=== PATIENT | male | born 1975 | race Caucasian/White ===

== ENCOUNTER 2018-10-05 20:21 | Emergency (ER) | payer BC ==
--- NOTE | 2018-10-05 20:39 | ED ---
Extremity Problem HPI - General Chief complaint: Extremity Problem,Nontraumatic Stated complaint: poss blood clot in leg Time Seen by Provider: 10/05/18 20:34 Source: patient, RN notes reviewed, old records reviewed Mode of arrival: ambulatory Limitations: no limitations - History of Present Illness Initial comments: This is a 43-year-old male the ER for evaluation presents today for evaluation regards to knee pain right knee pain. Patient concern for DVT. No trauma. No other complaints. No shortness of breath or chest pain. No history of DVT. Significant medical history no fever cough congestion. No recent travel history or sick contacts MD Complaint: extremity pain (Right knee) -: days(s) Location: right History of Same: No -: Yes arthralgia Radiation: none Severity scale (1-10): 3 Quality: aching Consistency: constant Improves with: nothing Worsens with: nothing Associated Symptoms: denies other symptoms - Related Data Home Medications Medication Instructions Recorded Confirmed No Known Home Medications 11/03/13 10/05/18 Allergies Allergy/AdvReac Type Severity Reaction Status Date / Time No Known Allergies Allergy Verified 10/05/18 20:46 Review of Systems ROS Statement: Those systems with pertinent positive or pertinent negative responses have been documented in the HPI. ROS Other: All systems not noted in ROS Statement are negative. Past Medical History Past Medical History: No Reported History History of Any Multi-Drug Resistant Organisms: None Reported Past Surgical History: No Surgical Hx Reported Past Psychological History: No Psychological Hx Reported Smoking Status: Never smoker Past Alcohol Use History: None Reported Past Drug Use History: None Reported General Exam Limitations: no limitations General appearance: alert, in no apparent distress Head exam: Present: atraumatic, normocephalic, normal inspection Eye exam: Present: normal appearance, PERRL, EOMI. Absent: scleral icterus, conjunctival injection, periorbital swelling ENT exam: Present: normal exam, mucous membranes moist Neck exam: Present: normal inspection. Absent: tenderness, meningismus, lymphadenopathy Respiratory exam: Present: normal lung sounds bilaterally. Absent: respiratory distress, wheezes, rales, rhonchi, stridor Cardiovascular Exam: Present: regular rate, normal rhythm, normal heart sounds. Absent: systolic murmur, diastolic murmur, rubs, gallop, clicks GI/Abdominal exam: Present: soft, normal bowel sounds. Absent: distended, tenderness, guarding, rebound, rigid Extremities exam: Present: normal inspection, full ROM, normal capillary refill. Absent: tenderness, pedal edema, joint swelling, calf tenderness Back exam: Present: normal inspection Neurological exam: Present: alert, oriented X3, CN II-XII intact Psychiatric exam: Present: normal affect, normal mood Skin exam: Present: warm, dry, intact, normal color. Absent: rash Course Vital Signs 10/05/18 20:29 Temperature 97.8 F Pulse Rate 86 Respiratory 20 Rate Blood Pressure 142/96 O2 Sat by Pulse 99 Oximetry Medical Decision Making - Medical Decision Making 43 male the ER with nonspecific right knee pain likely lymph node on ultrasound, no abscess, neurovascular infection, also negative for DVT. Patient can be discharged home - Radiology Data Radiology results: report reviewed (Right leg ultrasound negative for DVT), image reviewed Disposition Clinical Impression: Right knee pain Disposition: HOME SELF-CARE Condition: Good Instructions (If sedation given, give patient instructions): Knee Pain (ED) Is patient prescribed a controlled substance at d/c from ED?: No Referrals: Jasiel Garzon DO [Primary Care Provider] - 1-2 days
--- NOTE | 2018-10-05 22:06 | US ---
EXAMINATION TYPE: US venous doppler duplex LE RT DATE OF EXAM: 10/05/2018 9:57 PM COMPARISON: NONE CLINICAL HISTORY: Pain. Pain right leg x 2 hours. Palpable area. No HX of DVT. Pt not on blood thinne rs. SIDE PERFORMED: Right TECHNIQUE: The lower extremity deep venous system is examined utilizing real time linear array sonog elena with graded compression, doppler sonography and color-flow sonography. VESSELS IMAGED: External Iliac Vein (EIV) Common Femoral Vein Deep Femoral Vein Greater Saphenous Vein * Femoral Vein Popliteal Vein Small Saphenous Vein * Proximal Calf Veins (* superficial vessels) Right Leg: Hypoechoic area seen medial right knee area measurin.1 x 1.0 x 0.5 cm. IMPRESSION: No evidence of deep venous thrombosis. Small oval-shaped hypoechoic area on the medial a spect of the knee that could be a lymph node
[2018-10-05 22:31] VITALS: BP 139/74; PULSE 74; RESP 18; TEMP 98.2
== END 2018-10-05 22:31 | disposition home or self-care (01) ==
LOC: EC 20:21
DX: M25.561 Pain in right knee (principal)
CPT/HCPCS: 99284